=== PATIENT | female | born 1970 | race Caucasian/White ===

== ENCOUNTER 2019-08-07 10:57 | Emergency (ER) | payer BC ==
[2019-08-07 12:36] VITALS: BP 165/93
[2019-08-07] MEDS ORDERED: Fluorescein Sodium TOPICAL* 1 MG TEST STRIP OPHTHALMIC ONE (12:43)
--- NOTE | 2019-08-07 12:52 | UC ---
Eye Complaint HPI - HPI Summary HPI Summary: increasing redness R eye with irritation since yesterday. wears contacts. no fever, uri or discharge. + photophobia OD. OS is clear. - History of Current Complaint Chief Complaint: UCEye Stated Complaint: RIGHT EYE COMPLAINT Time Seen by Provider: 08/07/19 12:43 Hx Obtained From: Patient Hx Last Menstrual Period: 07/28/13 Onset/Duration: Gradual Onset Timing: Constant Pain Intensity: 5 Aggravating Factor(s): Light Associated Signs And Symptoms: Positive: Photophobia. Negative: Drainage ( Purulent), Vision Impairment Bilateral, Fever, Swelling - Allergies/Home Medications Allergies/Adverse Reactions: Allergies Allergy/AdvReac Type Severity Reaction Status Date / Time No Known Allergies Allergy Verified 08/11/13 18:57 Home Medications: Home Medications Nebivolol HCl [Bystolic] 20 mg PO DAILY 08/07/19 [History Confirmed 08/07/19] Oxybutynin XL TAB* [Ditropan XL TAB*] 15 mg PO DAILY 08/07/19 [History Confirmed 08/07/19] Spironolactone TAB* [Aldactone TAB*] 50 mg PO DAILY 08/07/19 [History Confirmed 08/07/19] PMH/Surg Hx/FS Hx/Imm Hx Cardiovascular History: Hypertension - Surgical History Surgical History: Yes Surgery Procedure, Year, and Place: 2008. kidney stone 2008. cholecystectomy 07/30. uterine ablation - Family History Known Family History: Positive: Non-Contributory - Social History Lives: With Family Alcohol Use: Occasionally Substance Use Type: None Smoking Status (MU): Never Smoked Tobacco Review of Systems All Other Systems Reviewed And Are Negative: No Constitutional: Negative: Fever, Chills Skin: Negative: Rash Eyes: Positive: Eye Redness - OD, Photophobia - OD. Negative: Blurred Vision, Diplopia, Drainage ENT: Negative: Sore Throat, Ear Ache, Sinus Congestion Neurological: Negative: Headache Physical Exam Triage Information Reviewed: Yes Appearance: Well-Appearing Vital Signs: Initial Vital Signs Temp 99.5 F 08/07/19 12:29 Pulse 70 08/07/19 12:29 Resp 15 08/07/19 12:29 BP 165/93 08/07/19 12:29 Pulse Ox 99 08/07/19 12:29 Eyes: Positive: Other: - No periorbital edema or rash. No auricular adenopathy. Conjunctiva OD injected, OS is clear. PERRL, EOMI, AC's clear. Lid OD everted and No FB's. OD stained and small area of squigly uptake at 9 0'clock libic area but cornea is clear. ENT: Positive: Pharynx normal, TMs normal. Negative: Nasal congestion, Nasal drainage Neck: Positive: Supple, Nontender, No Lymphadenopathy Neurological: Positive: Alert Psychological: Positive: Age Appropriate Behavior Skin Exam: Normal Skin: Negative: Rashes Eye Complaint Course/Dx - Course Course Of Treatment: Office of Dr rose called and will see pt now. - Differential Dx/Diagnosis Differential Diagnosis/HQI/PQRI: Other - conjunctivitis vs abrasion vs ucleartion or dendrite but that was not seen on the cornea. pt agrees to see opthamology now. Provider Diagnosis: Photophobia of right eye, Red eye Discharge ED - Sign-Out/Discharge Documenting (check all that apply): Patient Departure All imaging exams completed and their final reports reviewed: No Studies - Discharge Plan Condition: Stable Disposition: HOME Referrals: Doug Barbour MD [Medical Doctor] - Additional Instructions: now - Billing Disposition and Condition Condition: STABLE Disposition: Home - Attestation Statements Provider Attestation: I was available for consult. This patient was seen by the [facility]. The patient was not presented to, seen by, or examined by me. -Eneida
== END 2019-08-07 13:04 | disposition home or self-care (01) ==
LOC: UCCORT 10:57
DX: H57.89 Other specified disorders of eye and adnexa (principal); I10 Essential (primary) hypertension
CPT/HCPCS: 99202; A9270-GY; G0463